=== PATIENT | female | born 1995 | race Caucasian/White ===

== ENCOUNTER 2025-09-13 17:54 | Emergency (ER) | payer SELFPAY ==
[~2025-09-13] VITALS: Ht 157.5 cm; Wt 99.8 kg
[2025-09-13] MEDS ORDERED: LIDOCAINE/PRILOCAINE (5GM) 5 GM TUBE TP ONE (18:24)
[2025-09-13] MEDS: LIDOCAINE 5% OINT 35.44 GM TUBE TP STA (18:38)
[2025-09-13] MEDS ORDERED: IBUP-1953 PO (19:02)
[2025-09-13] MEDS ORDERED: SULF1TAB48 PO (19:02)
[2025-09-13] MEDS ORDERED: CEPH-570 PO (19:02)
[2025-09-13 19:07] VITALS: BP 162/83; TEMP 97.8; O2SAT 100
== END 2025-09-13 19:07 | disposition home or self-care (01) ==
LOC: ER 18:03
DX: L05.01 Pilonidal cyst with abscess (principal); K62.89 Other specified diseases of anus and rectum